=== PATIENT | female | born 1955 | race Caucasian/White ===

== ENCOUNTER 2018-06-12 11:12 | Outpatient (CLI) | payer OTHER ==
--- NOTE | 2018-06-12 12:29 | RAD ---
2 VIEW CHEST: Date: 06/12/18 HISTORY: Wheezing. COMPARISON: 12/01/10. FINDINGS: The lung albarado appear clear. No infiltrate or vascular congestion. Heart and mediastinum unremarkabl e. Osseous structures unremarkable. IMPRESSION: No acute abnormality identified. POS: [facility]
== END 2018-06-12 11:13 | disposition home or self-care (01) ==
LOC: RAD-FRANK 11:12
PROVIDERS: ATTEND Nurse Practitioner Family
DX: R06.2 Wheezing (principal)
CPT/HCPCS: 71046

== ENCOUNTER 2019-07-27 10:54 | Outpatient (CLI) | payer MEDICARE ==
--- NOTE | 2019-07-27 13:16 | MMO ---
Bilateral MAMMO Bilat Screen [facility]. CLINICAL HISTORY: Patient is 64 years old and is seen for screening. The patient has the following family history of breast cancer: niece. The patient has no personal history of cancer. VIEWS: The views performed were: bilateral craniocaudal with tomosynthesis and bilateral mediolateral oblique with tomosynthesis. FILMS COMPARED: The present examination has been compared to prior imaging studies performed at [facility] on 07/03/2010, 08/20/2011, 03/27/2014 and 11/10/2016. This study has been interpreted with the assistance of computer-aided detection. MAMMOGRAM FINDINGS: The breasts are heterogeneously dense, which could obscure a lesion on mammography. There are no suspicious masses, suspicious calcifications, or new areas of architectural distortion. IMPRESSION: THERE IS NO MAMMOGRAPHIC EVIDENCE OF MALIGNANCY. A ROUTINE FOLLOW-UP MAMMOGRAM IN 1 YEAR IS RECOMMENDED. THE RESULTS OF THIS EXAM WERE SENT TO THE PATIENT. ACR BI-RADS Category 1 - Negative MAMMOGRAPHY NOTE: 1. A negative mammogram report should not delay a biopsy if a dominant of clinically suspicious mass is present. 2. Approximately 10% to 15% of breast cancers are not detected by mammography. 3. Adenosis and dense breasts may obscure an underlying neoplasm. Reported by: LUCIO MOORE MD Electonically Signed: [id number]
== END 2019-07-27 10:55 | disposition home or self-care (01) ==
LOC: BICMAMMO 10:54
PROVIDERS: ATTEND Nurse Practitioner Family
DX: Z12.31 Encounter for screening mammogram for malignant neoplasm of breast (principal); Z80.3 Family history of malignant neoplasm of breast
CPT/HCPCS: 77063; 77067

== ENCOUNTER 2020-11-12 11:41 | Outpatient (CLI) | payer MEDICARE | END 2020-11-12 11:42 | disposition home or self-care (01) | LOC: BICRAD 11:41 | PROVIDERS: ATTEND Physician Assistant Medical | DX: R05 Cough (principal); R06.2 Wheezing | CPT/HCPCS: 71046 ==

== ENCOUNTER 2021-02-25 09:59 | Outpatient (CLI) | payer MEDICARE | END 2021-02-25 10:00 | disposition home or self-care (01) | LOC: ULT 09:59 | PROVIDERS: ATTEND Physician Assistant Medical | DX: R11.2 Nausea with vomiting, unspecified (principal); R74.8 Abnormal levels of other serum enzymes; N28.89 Other specified disorders of kidney and ureter | CPT/HCPCS: 76705 ==

== ENCOUNTER 2021-03-16 10:55 | Outpatient (CLI) | payer MEDICARE ==
[~2021-03-16 10:55] MED LIST: Iopamidol 370 76% 100 ML VIAL ONE
[2021-03-16 11:21] LABS: Estimated GFR-MDRD - POC Greater than 90
== END 2021-03-16 10:56 | disposition home or self-care (01) ==
LOC: BICCT 10:55
PROVIDERS: ATTEND Physician Assistant Medical
DX: N28.89 Other specified disorders of kidney and ureter (principal)
CPT/HCPCS: 74170; 82565; Q9967

== ENCOUNTER 2021-09-24 10:57 | Outpatient (CLI) | payer MEDICARE | END 2021-09-24 10:58 | disposition home or self-care (01) | PROVIDERS: ATTEND Internal Medicine | DX: K21.9 Gastro-esophageal reflux disease without esophagitis (principal); R13.10 Dysphagia, unspecified | CPT/HCPCS: 74230 ==

== ENCOUNTER 2021-12-31 11:28 | Outpatient (CLI) | payer MEDICARE | END 2021-12-31 11:29 | disposition home or self-care (01) | LOC: BICMAMMO 11:28 | PROVIDERS: ATTEND Nurse Practitioner Family | DX: Z12.31 Encounter for screening mammogram for malignant neoplasm of breast (principal); Z80.3 Family history of malignant neoplasm of breast | CPT/HCPCS: 77063; 77067 ==

== ENCOUNTER 2022-02-01 15:47 | Outpatient (CLI) | payer MEDICARE | END 2022-02-01 15:48 | disposition home or self-care (01) | LOC: RAD 15:47 | PROVIDERS: ATTEND Internal Medicine Critical Care Medicine | DX: R05.3 Chronic cough (principal) | CPT/HCPCS: 71046 ==

== ENCOUNTER 2023-05-23 13:37 | Outpatient (CLI) | payer MEDICARE | END 2023-05-23 13:38 | disposition home or self-care (01) | LOC: RAD 13:37 | PROVIDERS: ATTEND Internal Medicine | DX: R06.00 Dyspnea, unspecified (principal) | CPT/HCPCS: 71046 ==